=== PATIENT | female | born 1985 | race Caucasian/White ===

== ENCOUNTER 2018-03-01 19:36 | Emergency (ER) | payer SELFPAY ==
[2018-03-01] MEDS ORDERED: KETOROLAC 30 MG/ML INJ ONE (20:08)
--- NOTE | 2018-03-01 20:43 | EDPHYS ---
Physician Documentation [facility] Name: Kelly King Age: 32 yrs Sex: Female : 1985 Arrival Date: 03/01/2018 Time: 19:39 Bed 27 Private MD: ED Physician Jarocho Thomas HPI: 03/01 19:59 This 32 yrs old Female presents to ER via Ambulatory with complaints of Foot jmm Pain. 19:59 The patient presents with pain, that is acute. The complaints affect the left foot. jmm Onset: The symptoms/episode began/occurred gradually, 3 day(s) ago. Modifying factors: The symptoms are alleviated by elevating leg, the symptoms are aggravated by weight bearing. Associated signs and symptoms: Pertinent negatives fever. This is a 32 year old female with no chronic medical conditions that presents to the ED with pain to the left foot. Patient denies injury, denies fever. . 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 - Social history:: Smoking status: Patient/guardian denies using tobacco, the patient reports quitting approximately 1 years ago, Patient/guardian denies using alcohol, street drugs. - Ebola Screening: : No symptoms or risks identified at this time. ROS: 19:59 Constitutional: Negative for fever, chills, and weight loss. jmm 19:59 MS/extremity: Positive for pain. 19:59 All other systems are negative. Exam: 19:59 Head/Face: atraumatic. Chest/axilla: Normal chest wall appearance and motion. jmm Cardiovascular: Regular rate and rhythm. No edema appreciated Respiratory: Normal respirations, no respiratory distress appreciated Abdomen/GI: Non distended, soft Back: Normal ROM 19:59 Constitutional: The patient appears in no acute distress, alert, awake. 19:59 Musculoskeletal/extremity: the plantar surface of the left foot is tender to palpation along the lateral edge, no obvious deformity full dorsalis pedis pulse, compartments are soft, NVI. 19:59 Skin: Appearance: Color: normal in color. 19:59 Neuro: Orientation: is normal, Mentation: is normal, Memory: is normal. 19:59 Psych: Behavior/mood is pleasant, cooperative. Vital Signs: 19:48 BP 118 / 76; Pulse 81; Resp 16 S; Temp 98.5(O); Pulse Ox 100% on R/A; Weight 113.4 kg bb (R); Height 5 ft. 9 in. (175.26 cm) (R); Pain 8/10; 20:28 BP 119 / 67; Pulse 77; Pulse Ox 100% on R/A; rv 20:50 BP 103 / 46; Pulse 75; Pulse Ox 100% on R/A; rv 19:48 Body Mass Index 36.92 (113.40 kg, 175.26 cm) bb MDM: 19:46 Patient medically screened. [facility] 20:41 Data reviewed: vital signs, nurses notes. Counseling: I had a detailed discussion with [facility] the patient and/or guardian regarding: the historical points, exam findings, and any diagnostic results supporting the discharge/admit diagnosis, radiology results, the need for outpatient follow up, to return to the emergency department if symptoms worsen or persist or if there are any questions or concerns that arise at home. 03/01 19:57 Order name: Foot Left 3 View XRAY; Complete Time: 20:47 [facility] 03/01 20:36 Order name: Orthopedic shoe; Complete Time: 20:52 [facility] 03/01 20:36 Order name: Crutches; Complete Time: 20:52 [facility] Administered Medications: 20:04 Drug: Ketorolac 60 mg Route: IM; Site: right deltoid; 20:27 Follow up: Response: Pain is unchanged, physician notified rv Disposition: 03/02 02:57 Co-signature as Attending Physician, Jarocho Thomas MD. pkl Disposition: 03/01/18 20:42 Discharged to Home. Impression: Pain in left foot. - Condition is Stable. - Discharge Instructions: Foot Pain. - Prescriptions for Ibuprofen 800 mg Oral Tablet - take 1 tablet by ORAL route every 8 hours As needed take with food; 30 tablet. - Work release form, Medication Reconciliation Form, Thank You Letter, Antibiotic Education, Prescription Opioid Use form. - Follow up: Luis M Kimball MD; When: 2 - 3 days; Reason: Recheck today's complaints, Continuance of care, Re-evaluation by your physician. Signatures: Dispatcher [employer] EDJarocho Howe MD MD pkl Mickail, Joel, PA PA jmm Ballard, Brenda, RN RN Garry Gomez RN RN rv Corrections: (The following items were deleted from the chart) 03/01 20:58 20:42 03/01/2018 20:42 Discharged to Home. Impression: Pain in left foot. Condition is rv Stable. Forms are Medication Reconciliation Form, Thank You Letter, Antibiotic Education, Prescription Opioid Use. Follow up: Dr. Luis M Kimball; When: 2 - 3 days; Reason: Recheck today's complaints, Continuance of care, Re-evaluation by your physician. howie
--- NOTE | 2018-03-01 20:43 | ER ---
Nurse's Notes [facility] Name: Kelly King Age: 32 yrs Sex: Female : 1985 Arrival Date: 03/01/2018 Time: 19:39 Bed 27 Private MD: Diagnosis: Pain in left foot Presentation: 03/01 19:46 Presenting complaint: Patient states: she has sudden onset of left heel pain she denies bb trauma states pain is 8/10 has taken OTC medication with no relief. Transition of care: patient was not received from another setting of care. Onset of symptoms was February 26, 2018. Risk Assessment: Do you want to hurt yourself or someone else? Patient reports no desire to harm self or others. Initial Sepsis Screen: Does the patient meet any 2 criteria? No. Patient's initial sepsis screen is negative. Does the patient have a suspected source of infection? No. Patient's initial sepsis screen is negative. Care prior to arrival: None. 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 - Social history:: Smoking status: Patient/guardian denies using tobacco, the patient reports quitting approximately 1 years ago, Patient/guardian denies using alcohol, street drugs. - Ebola Screening: : No symptoms or risks identified at this time. Screenin:50 Abuse screen: Denies threats or abuse. Denies injuries from another. Nutritional rv screening: No deficits noted. Tuberculosis screening: No symptoms or risk factors identified. Fall Risk None identified. Assessment: 19:49 General: Appears in no apparent distress. uncomfortable, Behavior is calm, cooperative. rv Pain: Complains of pain in left foot. Neuro: Level of Consciousness is awake, alert, obeys commands, Oriented to person, place, time, situation. Cardiovascular: Capillary refill < 3 seconds. Respiratory: Airway is patent. GI: No signs and/or symptoms were reported involving the gastrointestinal system. : No signs and/or symptoms were reported regarding the genitourinary system. EENT: No signs and/or symptoms were reported regarding the EENT system. Derm: Skin is intact. Musculoskeletal: Reports pain in left foot. 20:27 Reassessment: No changes from previously documented assessment. Patient and/or family rv updated on plan of care and expected duration. Pain level reassessed. Patient is alert, oriented x 3, equal unlabored respirations, skin warm/dry/pink. Vital Signs: 19:48 BP 118 / 76; Pulse 81; Resp 16 S; Temp 98.5(O); Pulse Ox 100% on R/A; Weight 113.4 kg bb (R); Height 5 ft. 9 in. (175.26 cm) (R); Pain 8/10; 20:28 BP 119 / 67; Pulse 77; Pulse Ox 100% on R/A; rv 20:50 BP 103 / 46; Pulse 75; Pulse Ox 100% on R/A; rv 19:48 Body Mass Index 36.92 (113.40 kg, 175.26 cm) ED Course: 19:39 Patient arrived in ED. do 19:40 Dallin Adair PA is PHCP. jmm 19:40 Jarocho Thomas MD is Attending Physician. jmm 19:48 Triage completed. bb 19:48 Arm band placed on Patient placed in an exam room, on a stretcher, on pulse oximetry. bb 19:50 Patient has correct armband on for positive identification. Bed in low position. Call rv light in reach. Side rails up X 1. Adult w/ patient. Pulse ox on. NIBP on. 20:09 X-ray completed. Portable x-ray completed in exam room. Patient tolerated procedure la2 well. 20:09 Foot Left 3 View XRAY In Process Unspecified. EDMS 20:42 Luis M Kimball MD is Referral Physician. jmm 20:51 No provider procedures requiring assistance completed. Patient did not have IV access rv during this emergency room visit. 20:56 Crutch training done. Ortho shoe applied to left foot. jp3 Administered Medications: 20:04 Drug: Ketorolac 60 mg Route: IM; Site: right deltoid; rv 20:27 Follow up: Response: Pain is unchanged, physician notified rv Outcome: 20:42 Discharge ordered by . jmm 20:51 Discharged to home with crutches. rv 20:51 Condition: good 20:51 Discharge instructions given to patient, Instructed on discharge instructions, follow up and referral plans. medication usage, crutch walking, Demonstrated understanding of instructions, follow-up care, medications, crutch walking, Prescriptions given X 1. 20:58 Patient left the ED. rv Signatures: Dispatcher [employer] EDMS Dallin Adair PA PA jmm Ballard, Brenda, RN RN bb Stefania Hernandez Leslie la2 Vicente, Ronaldo, RN RN rv Jesse Victor jp3
--- NOTE | 2018-03-01 20:46 | RAD REPORT ---
EXAM DESCRIPTION: RAD - Foot Left 3 View - 03/01/2018 8:11 pm CLINICAL HISTORY: Left Foot pain FINDINGS: No fracture or dislocation is seen. No bone or joint abnormality is seen
[2018-03-01 21:04] VITALS: TEMP 98.5; O2SAT 100
[2018-03-01 21:06] VITALS: BP 103/46
== END 2018-03-01 20:58 | disposition home or self-care (01) ==
LOC: ER 19:36
DX: M79.672 Pain in left foot (principal); Z88.6 Allergy status to analgesic agent
CPT/HCPCS: 96372; 99284

== ENCOUNTER 2019-01-23 07:53 | Emergency (ER) | payer SELFPAY ==
[2019-01-23] MEDS ORDERED: METHYLPREDNISOLONE 125 MG INJ ONE (08:25)
[2019-01-23] MEDS ORDERED: ALBUTEROL 2.5 MG/3 ML NEB SOL ONE (08:25)
--- NOTE | 2019-01-23 08:58 | RAD REPORT ---
EXAM DESCRIPTION: RAD - Chest Pa And Lat (2 Views) - 01/23/2019 8:42 am CLINICAL HISTORY: Cough;SOB Chest pain. COMPARISON: No comparisons FINDINGS: The lungs are clear. The heart is normal in size. No displaced fractures. IMPRESSION: No acute or concerning finding suspected.
[2019-01-23 09:08] LABS: Urine Blood TRACE (NEG); Urine Glucose NEGATIVE (NEG); Urine Protein NEGATIVE (NEG)
--- NOTE | 2019-01-23 09:15 | ER ---
Nurse's Notes [facility] Name: Kelly King Age: 33 yrs Sex: Female : 1985 Arrival Date: 01/23/2019 Time: 07:56 Bed 20 Private MD: Diagnosis: Acute upper respiratory infection, unspecified Presentation: 01/23 08:18 Presenting complaint: Patient states: dry hacking cough since 1 am, eyes watering, also iw has chest tightness from coughing. Transition of care: patient was not received from another setting of care. Onset of symptoms was January 23, 2019. Risk Assessment: Do you want to hurt yourself or someone else? Patient reports no desire to harm self or others. Initial Sepsis Screen: Does the patient meet any 2 criteria? No. Patient's initial sepsis screen is negative. Does the patient have a suspected source of infection? No. Patient's initial sepsis screen is negative. Care prior to arrival: None. 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 - Social history:: Smoking status: Patient/guardian denies using tobacco. - Ebola Screening: : Patient negative for fever greater than or equal to 101.5 degrees Fahrenheit, and additional compatible Ebola Virus Disease symptoms Patient denies exposure to infectious person Patient denies travel to an Ebola-affected area in the 21 days before illness onset No symptoms or risks identified at this time. Screenin:25 Abuse screen: Denies threats or abuse. Nutritional screening: No deficits noted. em Tuberculosis screening: No symptoms or risk factors identified. Fall Risk None identified. Assessment: 08:25 General: Appears in no apparent distress. uncomfortable, Behavior is calm, cooperative, em Denies fever. Pain: Complains of pain in chest Pain currently is 7 out of 10 on a pain scale. Neuro: Level of Consciousness is awake, alert, obeys commands, Oriented to person, place, time, situation. Cardiovascular: Capillary refill < 3 seconds Patient's skin is warm and dry. Rhythm is regular. Respiratory: Reports cough that is dry, hacking, Airway is patent is compromised Respiratory effort is even, unlabored, Respiratory pattern is regular, symmetrical, Breath sounds are clear bilaterally. Onset: The symptoms/episode began/occurred this morning. GI: Patient currently denies nausea, vomiting. Derm: Skin is intact, is healthy with good turgor, Skin is pink, warm \T\ dry. Musculoskeletal: Capillary refill < 3 seconds, Range of motion: intact in all extremities. 08:38 Reassessment: wheeled to radiology dept. in wheelchair. em 09:19 Reassessment: Patient appears in no apparent distress at this time. Patient and/or em family updated on plan of care and expected duration. Pain level reassessed. Patient is alert, oriented x 3, equal unlabored respirations, skin warm/dry/pink. Patient states feeling better. Patient states symptoms have improved. Vital Signs: 08:19 BP 123 / 74; Pulse 74; Resp 18 S; Temp 98.8(O); Pulse Ox 98% on R/A; Weight 127.01 kg; iw Height 5 ft. 10 in. (177.80 cm); Pain 7/10; 08:19 Body Mass Index 40.18 (127.01 kg, 177.80 cm) iw ED Course: 07:56 Patient arrived in ED. ag3 08:15 Jairo Em NP is PHCP. pm1 08:15 Charanjit Marin MD is Attending Physician. pm1 08:19 Triage completed. iw 08:19 Arm band placed on. iw 08:25 Tomas Gonzalez LVN is Primary Nurse. em 08:25 Patient has correct armband on for positive identification. Bed in low position. Pulse em ox on. NIBP on. 08:35 Patient moved to radiology via wheelchair. sw 08:40 X-ray completed. Portable x-ray completed in exam room. Patient tolerated procedure jb2 well. 09:19 No provider procedures requiring assistance completed. Patient did not have IV access em during this emergency room visit. Administered Medications: 08:51 Drug: SOLU-Medrol 125 mg Route: IM; Site: left gluteus; em 09:14 Follow up: Response: No adverse reaction; Marked relief of symptoms em 08:51 Drug: Albuterol 5 mg Route: Inhalation; em 09:14 Follow up: Response: No adverse reaction; Marked relief of symptoms em Outcome: 09:12 Discharge ordered by . pm1 09:19 Discharged to home ambulatory. em 09:19 Condition: good 09:19 Discharge instructions given to patient, Instructed on discharge instructions, follow up and referral plans. medication usage, Demonstrated understanding of instructions, follow-up care, medications, Prescriptions given X 3. 09:19 Patient left the ED. em Signatures: Daniel Ortiz2 Tomas Gonzalez, FIELD MARKETING ASSOCIATE FIELD MARKETING ASSOCIATE em Mariaelena Whitney, KADEN RN Francia Ang Patrick, NP MANAGER HARBOR pm1 Zayra Avila3
--- NOTE | 2019-01-23 09:16 | EDPHYS ---
Physician Documentation [facility] Name: Kelly King Age: 33 yrs Sex: Female : 1985 Arrival Date: 01/23/2019 Time: 07:56 Bed 20 Private MD: ED Physician Charanjit Marin HPI: 01/23 08:32 This 33 yrs old Female presents to ER via Ambulatory with complaints of Cough.pm1 08:32 The patient or guardian reports cough, with no sputum. Onset: The symptoms/episode pm1 began/occurred this morning, at 01:00. Severity of symptoms: in the emergency department the symptoms are unchanged. Modifying factors: The symptoms are alleviated by nothing, the symptoms are aggravated by nothing. Associated signs and symptoms: Pertinent positives: chest pain, with cough, Pertinent negatives: diarrhea, ear ache, fever, rhinorrhea, sore throat, vomiting. The patient has not experienced similar symptoms in the past. The patient has not recently seen a physician. 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 - Social history:: Smoking status: Patient/guardian denies using tobacco. - Ebola Screening: : Patient negative for fever greater than or equal to 101.5 degrees Fahrenheit, and additional compatible Ebola Virus Disease symptoms Patient denies exposure to infectious person Patient denies travel to an Ebola-affected area in the 21 days before illness onset No symptoms or risks identified at this time. ROS: 08:32 Constitutional: Negative for fever, chills, and weight loss, Eyes: Negative for injury, pm1 pain, redness, and discharge, ENT: Negative for injury, pain, and discharge, Neck: Negative for injury, pain, and swelling, Abdomen/GI: Negative for abdominal pain, nausea, vomiting, diarrhea, and constipation. 08:32 Back: Negative for injury and pain, : Negative for injury, bleeding, discharge, and swelling, MS/Extremity: Negative for injury and deformity, Skin: Negative for injury, rash, and discoloration, Neuro: Negative for headache, weakness, numbness, tingling, and seizure. 08:32 Cardiovascular: Positive for chest pain, with cough. 08:32 Respiratory: Positive for cough, shortness of breath. Exam: 08:32 Constitutional: This is a well developed, well nourished patient who is awake, alert, pm1 and in no acute distress. Head/Face: Normocephalic, atraumatic. Eyes: Pupils equal round and reactive to light, extra-ocular motions intact. Lids and lashes normal. Conjunctiva and sclera are non-icteric and not injected. Cornea within normal limits. Periorbital areas with no swelling, redness, or edema. ENT: Nares patent. No nasal discharge, no septal abnormalities noted. Tympanic membranes are normal and external auditory canals are clear. Oropharynx with no redness, swelling, or masses, exudates, or evidence of obstruction, uvula midline. Mucous membranes moist. Neck: Trachea midline, no thyromegaly or masses palpated, and no cervical lymphadenopathy. Supple, full range of motion without nuchal rigidity, or vertebral point tenderness. No Meningismus. Chest/axilla: Normal chest wall appearance and motion. Nontender with no deformity. No lesions are appreciated. Cardiovascular: Regular rate and rhythm with a normal S1 and S2. No gallops, murmurs, or rubs. Normal PMI, no JVD. No pulse deficits. Respiratory: Lungs have equal breath sounds bilaterally, clear to auscultation and percussion. No rales, rhonchi or wheezes noted. No increased work of breathing, no retractions or nasal flaring. Abdomen/GI: Soft, non-tender, with normal bowel sounds. No distension or tympany. No guarding or rebound. No evidence of tenderness throughout. Back: No spinal tenderness. No costovertebral tenderness. Full range of motion. Skin: Warm, dry with normal turgor. Normal color with no rashes, no lesions, and no evidence of cellulitis. MS/ Extremity: Pulses equal, no cyanosis. Neurovascular intact. Full, normal range of motion. 08:32 Neuro: Orientation: is normal, Motor: is normal, moves all fours, Sensation: is normal, no obvious gross deficits. Vital Signs: 08:19 BP 123 / 74; Pulse 74; Resp 18 S; Temp 98.8(O); Pulse Ox 98% on R/A; Weight 127.01 kg; iw Height 5 ft. 10 in. (177.80 cm); Pain 7; 08:19 Body Mass Index 40.18 (127.01 kg, 177.80 cm) iw MDM: 08:15 Patient medically screened. pm1 08:34 Data reviewed: vital signs. Data interpreted: Pulse oximetry: on room air is 98 %. pm1 Interpretation: normal. 09:11 Counseling: I had a detailed discussion with the patient and/or guardian regarding: the pm1 historical points, exam findings, and any diagnostic results supporting the discharge/admit diagnosis, lab results, radiology results, the need for outpatient follow up, to return to the emergency department if symptoms worsen or persist or if there are any questions or concerns that arise at home. 09:11 ED course: symptoms improved with breathing treatment and steroids given in ER. pm1 01/23 08:23 Order name: Flu pm1 01/23 08:38 Order name: Urine Dipstick--Ancillary (enter results) eb 01/23 08:38 Order name: Urine --Ancillary (enter results) eb 01/23 09:05 Order name: Influenza Screen (A ; Complete Time: 09:10 EDMS 01/23 09:09 Order name: Urine --Ancillary; Complete Time: 09:10 EDMS 01/23 09:09 Order name: Urine Dipstick-Ancillary; Complete Time: 09:10 EDMS 01/23 08:23 Order name: Chest Pa And Lat (2 Views) XRAY pm1 01/23 08:23 Order name: Urine Dipstick-Ancillary (obtain specimen); Complete Time: 08:40 pm1 01/23 08:23 Order name: Urine Test (obtain specimen); Complete Time: 08:40 pm1 Administered Medications: 08:51 Drug: SOLU-Medrol 125 mg Route: IM; Site: left gluteus; em 09:14 Follow up: Response: No adverse reaction; Marked relief of symptoms em 08:51 Drug: Albuterol 5 mg Route: Inhalation; em 09:14 Follow up: Response: No adverse reaction; Marked relief of symptoms em Disposition: 16:01 Co-signature as Attending Physician, Charanjit Marin MD I agree with the assessment and kdr plan of care. Disposition: 01/23/19 09:12 Discharged to Home. Impression: Acute upper respiratory infection, unspecified. - Condition is Stable. - Discharge Instructions: Antibiotic Resistance, Upper Respiratory Infection, Adult. - Prescriptions for Tessalon Perles 100 mg Oral Capsule - take 1 capsule by ORAL route every 8 hours As needed; 15 capsule. Medrol ([place]) 4 mg Oral Tablets, Dose Pack - take 1 tablet by ORAL route as directed - follow package instructions; 1 packet. Albuterol Sulfate 90 mcg/actuation - inhale 1-2 puff by INHALATION route every 4-6 hours; 1 Inhaler. - Work release form, Medication Reconciliation Form, Thank You Letter, Antibiotic Education, Prescription Opioid Use form. - Follow up: Emergency Department; When: As needed; Reason: Worsening of condition. Follow up: Private Physician; When: 2 - 3 days; Reason: Recheck today's complaints, Continuance of care, Re-evaluation by your physician. - Problem is new. - Symptoms have improved. Signatures: Dispatcher [employer] EDMS Charanjit Marin MD MD kdr Munoz, Edgar, CONCRETE RUBBER CONCRETE RUBBER Mariaelena Rubin RN RN Jairo Stone, SHARMIN STATISTICS MANAGER pm1 Corrections: (The following items were deleted from the chart) 09:12 01/23/2019 09:12 Discharged to Home. Impression: Acute upper respiratory em infection, unspecified. Condition is Stable. Forms are Medication Reconciliation Form, Thank You Letter, Antibiotic Education, Prescription Opioid Use. Follow up: Emergency Department; When: As needed; Reason: Worsening of condition. Follow up: Private Physician; When: 2 - 3 days; Reason: Recheck today's complaints, Continuance of care, Re-evaluation by your physician. Problem is new. Symptoms have improved. pm1
[2019-01-23 09:30] VITALS: BP 123/74; TEMP 98.8; O2SAT 98
== END 2019-01-23 09:19 | disposition home or self-care (01) ==
LOC: ER 07:53
DX: J06.9 Acute upper respiratory infection, unspecified (principal); Z88.6 Allergy status to analgesic agent
CPT/HCPCS: 71046; 81003; 81025; 87804; 96372; 99284; J2930